=== PATIENT | female | born 1995 | race Caucasian/White ===

== ENCOUNTER 2019-05-07 22:29 | Emergency (ER) | payer BC ==
--- NOTE | 2019-05-07 23:58 | EKG REPORT ---
SEVERITY:- NORMAL ECG - SINUS RHYTHM : Confirmed by: Eric Gama MD 07-May-2019 23:57:23
--- NOTE | 2019-05-08 03:51 | ER Document Report ---
ED Cardiac - General Chief Complaint: Chest Pain Stated Complaint: NUMBNESS TO LOWER EXTREMITIES Time Seen by Provider: 05/08/19 03:45 Primary Care Provider: AKIL MONTES MD [Primary Care Provider] - Follow up as needed TRAVEL OUTSIDE OF THE [place] IN LAST 30 DAYS: No - HPI Notes: This is a 24-year-old female who presents today with a complaint of palpitations. Patient states that she was driving when she felt the palpitations. She also describes tingling in the legs bilaterally on the left upper extremity. She denies any chest pain. Patient notes that she has had a history of palpitations and she wears a Holter monitor because she is been evaluated for this. She feels much better now. She denies any weakness. She denies any headache. She describes her symptoms as moderate. Symptoms almost completely resolved. - Related Data Allergies/Adverse Reactions: No Known Allergies Allergy (Unverified 01/15/15 09:35) Past Medical History - Social History Smoking Status: Never Smoker Frequency of alcohol use: None Drug Abuse: None Family History: Reviewed & Not Pertinent Review of Systems - Review of Systems Cardiovascular: Palpitations, Heart racing. denies: Chest pain, Syncope, Dizziness Respiratory: denies: Cough, Short of breath Gastrointestinal: denies: Constipation Neurological/Psychological: Numbness. denies: Weakness, Headaches -: Yes All other systems reviewed and negative Physical Exam - Vital signs Vitals: Temp Pulse Resp BP Pulse Ox 98.4 F 97 20 141/105 H 98 05/07/19 22:49 05/07/19 22:49 05/07/19 22:49 05/07/19 22:49 05/07/19 22:49 - General General appearance: Appears well, Alert - HEENT Head: Normocephalic, Atraumatic Eyes: Normal Pupils: PERRL - Respiratory Respiratory status: No respiratory distress Chest status: Nontender Breath sounds: Normal Chest palpation: Normal - Cardiovascular Rhythm: Regular Heart sounds: Normal auscultation Murmur: No - Abdominal Inspection: Normal Distension: No distension Bowel sounds: Normal Tenderness: Nontender Organomegaly: No organomegaly - Neurological Neuro grossly intact: Yes Cognition: Normal, Other - There is no motor, sensory or cerebellar deficits. Nonfocal neurologic exam. GCS is 15. Orientation: AAOx4 Davidson Coma Scale Eye Opening: Spontaneous Dulce Coma Scale Verbal: Oriented Dulce Coma Scale Motor: Obeys Commands Dulce Coma Scale Total: 15 Speech: Normal Motor strength normal: LUE, RUE, LLE, RLE Additional motor exam normals: No: Weakness Sensory: Normal Course - Re-evaluation Re-evalutation: 05/08/19 03:51 Differential diagnosis includes anxiety versus electrolyte abnormality versus arrhythmia. Will check basic labs. There is no clinical suspicion for acute coronary syndrome or CVA. 05/08/19 05:57 Patient reevaluated. Patient is doing well. Labs are unremarkable. She is stable for discharge. - Vital Signs Vital signs: Temp Pulse Resp BP Pulse Ox 98.1 F 97 14 124/78 100 05/08/19 05:00 05/07/19 22:49 05/08/19 05:00 05/08/19 05:00 05/08/19 05:00 - Laboratory Result Diagrams: 05/08/19 04:22 05/08/19 04:22 Discharge - Discharge Clinical Impression: Palpitations Condition: Good Disposition: HOME, SELF-CARE Instructions: Palpitations (Irregular or Rapid Heartrate) (OM) Additional Instructions: Follow-up with your doctor. Return if worse or concerns. Referrals: AKIL MONTES MD [Primary Care Provider] - Follow up as needed
[2019-05-08 04:08] LABS: TOTAL CELLS COUNTED % (AUTO) 100 %
[2019-05-08 04:39] LABS: ABSOLUTE BASOPHILS # (AUTO) 0.1 10^3/uL (0.0-0.2); ABSOLUTE EOSINOPHILS # (AUTO) 0.3 10^3/uL (0.0-0.6); ABSOLUTE LYMPHOCYTES (AUTO) 2.1 10^3/uL (0.5-4.7); ABSOLUTE MONOCYTES (AUTO) 0.5 10^3/uL (0.1-1.4); ABSOLUTE NEUT (AUTO) 4.5 10^3/uL (1.7-8.2); BASOPHILS % (AUTO) 1.1 % (0-2); EOSINOPHILS % (AUTO) 4.1 % (0-6); HEMATOCRIT 38.3 % (36.0-47.0); HEMOGLOBIN 12.9 g/dL (12.0-15.5); MEAN CORPUSCULAR HEMOGLOBIN 28.4 pg (27.0-33.4); MEAN CORPUSCULAR HGB CONC 33.7 g/dL (32.0-36.0); MEAN CORPUSCULAR VOLUME 84 fl (80-97); PLATELET COUNT 326 10^3/uL (150-450); RED BLOOD COUNT 4.54 10^6/uL (3.72-5.28); RED CELL DISTRIBUTION WIDTH 12.1 % (11.5-14.0); SEGMENTED NEUTROPHILS % (AUTO) 59.8 % (42-78); TOTAL CELLS COUNTED % (AUTO) 100 %; WHITE BLOOD COUNT 7.6 10^3/uL (4.0-10.5)
[2019-05-08 04:58] LABS: ANION GAP 10 (5-19); BLOOD UREA NITROGEN 15 mg/dL (7-20); CALCIUM 9.3 mg/dL (8.4-10.2); CARBON DIOXIDE 26 mmol/L (22-30); CHLORIDE 102 mmol/L (98-107); GLUCOSE 90 mg/dL (75-110)
[2019-05-08 05:13] LABS: FREE T4 (FREE THYROXINE) 0.92 ng/dL (0.78-2.19)
[2019-05-08 05:27] LABS: THYROID STIMULATING HORMONE 1.66 uIU/mL (0.47-4.68)
--- NOTE | 2019-05-08 06:06 | RADIOLOGY REPORT (SQ) ---
EXAM DESCRIPTION: XR CHEST 2 VIEWS COMPLETED DATE/TME: 05/08/2019 03:45 CLINICAL HISTORY: palpitations COMPARISON: None. FINDINGS: Frontal and lateral views of the chest. Cardiomediastinal silhouette: Normal size and contour. Lungs: No consolidation, pneumothorax, or pleural effusion. Bones: No acute osseous abnormality. Leads overlie the chest. External electronic device overlies the chest. Upper abdomen: Prior cholecystectomy. IMPRESSION: 1. No acute pulmonary process identified.
[2019-05-08 06:18] VITALS: BP 114/84
--- NOTE | 2019-05-08 07:37 | EKG REPORT ---
SEVERITY:- BORDERLINE ECG - SINUS RHYTHM BORDERLINE T ABNORMALITIES, ANTERIOR LEADS : Confirmed by: Eric Gama MD 08-May-2019 07:37:01
== END 2019-05-08 06:18 | disposition home or self-care (01) ==
LOC: ER 22:29
DX: R00.2 Palpitations (principal); R20.2 Paresthesia of skin; R20.0 Anesthesia of skin
CPT/HCPCS: 36415; 71046; 80048; 83735; 84439; 84443; 84702; 85025; 93005; 93010; 99285